=== PATIENT | male | born 1935 | race Caucasian/White ===

== ENCOUNTER 2020-02-24 01:20 | Inpatient (IN) | payer MEDICARE ==
[~2020-02-24] VITALS: Ht 167.6 cm; Wt 70.1 kg
--- NOTE | ~2020-02-24 | OP ---
[address] [address] OPERATIVE REPORT Name: MED FERNANDO Room: [address] IN M.R.#: [id number] Admission: 02/24/20 Attend Phys: Jourdan Melgoza Discharge: Date of : 39 Report #: [id number] THIS REPORT FOR: //name// cc: RAIN Enriquez family physician/PCP RAIN - Zoe family physician/PCP ~ THIS REPORT FOR: //name// CC: [facility] physician/PCP Corey Wang DICTATED BY: Norris Acuña DO DATE OF SERVICE: 02/25/2020 PREOPERATIVE DIAGNOSIS: Acute cholecystitis. POSTOPERATIVE DIAGNOSES: Acute cholecystitis, cholelithiasis and choledocholithiasis. SURGEON: Tacho Ordoñez DO PROTOTYPE MACHINIST: Norris Acuña, PGY4. OPERATION PERFORMED: Laparoscopic cholecystectomy with fluorescent imaging and intraoperative cholangiogram. ANESTHESIA: General. ESTIMATED BLOOD LOSS: 100 mL. SPECIMEN: Gallbladder and contents. COMPLICATIONS: None. INDICATIONS: The patient is an 85-year-old male who presented to the Emergency Department with complaints of right upper quadrant pain after consuming some fast food. He had some nausea and vomiting. On workup, he was found to have a gallstone impacted in the neck of the gallbladder and some possible thickening of his gallbladder. On day of surgery, his bilirubin was slightly elevated and therefore it was decided upon to perform an intraoperative cholangiogram in addition to his cholecystectomy. He was informed of the risks and benefits of laparoscopic cholecystectomy and decided to proceed with surgery. DESCRIPTION OF PROCEDURE: After informed consent was obtained, the patient was brought to the operating room and placed in the supine position. SCDs were on and running. Preoperative antibiotics were delivered. General anesthesia was [address] [address] OPERATIVE REPORT Name: MED FRENANDO Room: [address] IN [facility].#: [id number] Admission: 02/24/20 Attend Phys: Jourdan Melgoza Discharge: Date of : 39 Report #: [id number] administered with an ET tube. The patient tolerated induction well. He was prepped and draped in the usual sterile fashion. A surgical pause was held to confirm proper patient and procedure. An 11 blade was used to make a supraumbilical incision 2 cm in length. Dissection was carried through the subcutaneous tissue using cautery until the fascia was identified and incised using cautery and elevated with 2 Prachi clamps. The peritoneum was bluntly entered using a Lorin clamp. Avyrki-ma-wzigu at the superior and inferior aspect of the fascial incisions were placed using 0 Vicryl. The Lenard port was introduced into the abdomen and the balloon was insufflated. The abdomen was insufflated. Attention was turned towards the right upper quadrant. The transverse colon was somewhat dilated and there was some omentum draped over the gallbladder over the liver. A 5 mm port was placed in the epigastric region. The patient was positioned head up and right side up. A blunt grasper was used to sweep down the omentum. The gallbladder was readily visualized at this point. It was tense and distended and obviously inflamed. Two additional ports were placed in the right upper quadrant under direct visualization. A laparoscopic drainage needle was then used to aspirate the gallbladder about 70 mL of dark bilious fluid were aspirated from the gallbladder. The aspiration needle was withdrawn. The gallbladder was elevated. The fat and peritoneum overlying the hepatocystic triangle was incised using cautery. This plane was developed laterally as well as medially. The inflammation had caused a large rind over this area, which was pulled down revealing the fundus of the gallbladder, which was elevated. Fluorescence imaging was used to inspect the cystic triangle and the cystic duct was readily visualized. [place] dissector was used to circumferentially dissect the cystic duct. Once this was completed, a clip was placed across the cystic duct as close to the gallbladder as possible. Laparoscopic scissors were used to create a hole in the cystic duct to accommodate the cholangiogram catheter. A 14-gauge Angiocath was used to introduce the cholangiogram catheter through the abdominal wall. Once the catheter was placed into the cystic duct, it was secured with an additional clip. The catheter was tested with saline and flush. At this point, the C-arm was brought in and a cholangiogram was performed. There was prompt filling of the cystic and common bile duct as well as the common hepatic ducts. Contrast did flow into the duodenum. However, in the bifurcation from the common hepatic duct into the left and right hepatic ducts, there were some mobile filling defects noted, presumed to be mobile gallstones. These were unable to be retrieved, so no efforts were made towards retrieving these stones. The clip securing the catheter was removed. The catheter was removed from the abdomen as well as the Angiocath. Three additional clips were placed proximal to the cystic duct rent. Laparoscopic scissors were used to completely transect the cystic duct. Maryland dissection was then used to isolate the cystic artery, which was doubly clipped and ligated and cut using laparoscopic scissors. Cautery was then used to dissect the gallbladder free from the liver bed. Once completely free, the gallbladder was placed within an EndoCatch bag and placed aside. There was an area of hemorrhage from the liver bed, which was attempted to be controlled with cautery. This was insufficient, so Surgicel was used in [address] [address] OPERATIVE REPORT Name: FERNANDOMED E Room: [address] IN .R.#: [id number] Admission: 02/24/20 Attend Phys: Jourdan Melgoza Discharge: Date of : 39 Report #: [id number]. Once this was completely cauterized, it was hemostatic. Additional Surgicel was used over the entire liver bed. The right upper quadrant was thoroughly irrigated, suctioned and hemostatic. Clips were intact. The patient was positioned supine and the right upper quadrant was again suctioned. All ports were removed under direct visualization. The gallbladder was removed through the umbilical port. Previous stay sutures were elevated. Two additional of [id number] using 0 Vicryl were placed to close the fascia. Wounds were closed using 4-0 Monocryl. They were cleansed and dressed with Mastisol, Steri-Strips, and Tegaderms. The patient was emerged from anesthesia with no complications. All counts were correct. He was transferred to the PACU in stable condition. By: 1615 [id number] Ordoñez DO /vijay
[2020-02-24] MEDS ORDERED: LOPRESSOR50 MG PO (01:41)
[2020-02-24] MEDS ORDERED: ALLOPURINOL 10100 M3 PO (01:42)
[2020-02-24] MEDS ORDERED: AMLODIPINE BESY10 MG PO (01:42)
[2020-02-24] MEDS ORDERED: SIMVASTATIN80 MG PO (01:43)
[2020-02-24 01:44] VITALS: BP 125/68
[2020-02-24 01:49] LABS: ABSOLUTE BASOPHILS 0.1 thou/uL (0.0-0.2); ABSOLUTE EOSINOPHILS 0.2 thou/uL (0.0-0.7); ABSOLUTE LYMPHOCYTES 2.5 thou/uL (0.8-5.3); ABSOLUTE MONOCYTES 0.5 thou/uL (0.0-1.2); ABSOLUTE NEUTROPHILS 7.9 thou/uL (1.6-8.1); BASOPHILS 0.6 %; EOSINOPHILS 1.4 %; HEMATOCRIT 45.4 % (42.0-52.0); HEMOGLOBIN 15.4 gm/dL (14.0-18.0); LYMPHOCYTES 22.2 %; MCH 31.8 pg (26.0-34.0); MCV 93.6 fL (80.0-100.0); MONOCYTES 4.9 %; MPV 8.8 fl. (7.2-11.1); NUCLEATED RBCS 0 /100WBC; PLATELET COUNT* 198 thou/uL (150-400); POLYS 70.9 %; RBC 4.85 mil/uL (4.50-6.00); RDW-CV 15.3 % (10.5-14.5); WBC 11.1 thou/uL (4.0-11.0)
[2020-02-24 01:59] LABS: CALCIUM 8.8 mg/dL (8.5-10.1); CREATININE 1.5 mg/dL (0.6-1.3); POTASSIUM 3.7 mmol/L (3.5-5.1)
[2020-02-24 02:03] LABS: ALBUMIN 4.2 g/dL (3.4-5.0); TOTAL BILIRUBIN 0.6 mg/dL (<0.1-1.0); TOTAL PROTEIN 7.8 g/dL (6.4-8.2)
[2020-02-24 04:37] VITALS: BP 151/65
[2020-02-24 04:42] VITALS: BP 127/61
[2020-02-24 04:58] LABS: URINE BILIRUBIN NEGATIVE (Negative); URINE BLOOD TRACE (Negative); URINE CLARITY CLEAR; URINE COLOR YELLOW; URINE GLUCOSE-RANDOM NEGATIVE (Negative); URINE KETONES TRACE (Negative); URINE LEUKOCYTES-REFLEX NEGATIVE (Negative); URINE NITRITE-REFLEX NEGATIVE (Negative); URINE PROTEIN NEGATIVE (Negative); URINE UROBILINOGEN 0.2 E.U./dl (0.2-1.0)
--- NOTE | 2020-02-24 06:13 | NUR ---
Pt admitted for abd pain to RUQ. CT shows cholelithiasis as well as calcification to R ureter. Reports pain to RUQ upon arrival to room, rates 4/10. Morphine given (see MAR), reports partial relief from pain. Otherwise no complaints. VSS. NPO; IVF infusing. Will continue to monitor.
[2020-02-24 08:04] VITALS: BP 141/68
--- NOTE | 2020-02-24 13:27 | EKG ---
[place] [address] ELECTROCARDIOGRAM REPORT Name: MED FERNANDO Room: [address] IN .R.#: [id number] Admission: 02/24/20 Attend Phys: Corey Wang Discharge: Date of : 39 Date of Service: 02/24/20 0151 Report #: [id number] THIS REPORT FOR: //name// [facility] ED Test Date: 2020-02-24 Test Time: 01:51:55 Pat Name: MED FERNANDO Department: Room: [facility] Gender: M Machine Shop Supervisor: SUKHWINDER : 1935 Requested By: Saige Cordero Order Number: [id number] MD: Anant Perdomo Measurements Intervals Victor Rate: 55 P: 54 WY: 216 QRS: 55 QRSD: 108 T: 36 QT: 438 QTc: 419 Interpretive Statements Sinus bradycardia Borderline prolonged WY interval No previous ECG available for comparison Electronically Signed On 02-24-2020 13:26:14 CDT by Anant Perdomo [email or web address] <ELECTRONICALLY SIGNED> By: Anant Perdomo MD, [facility] 02/24/20 1326 0151 0151 Anant Perdomo MD, FAC /EPI
--- NOTE | 2020-02-24 16:39 | NUR ---
ASSUMED CARE OF PT AROUND 0730 THIS AM. REFER TO ASSESSMENT. PT REPORTS TOLERABLE PAIN. SCHEDULED TYLENOL ADMINISTERED X1 THIS SHIFT. TOLERATING SIPS OF LIQUIDS AT THIS TIME. ANTICIPATE REMOVAL OF GALL BLADDER PER SURGERY TOMORROW. IVF INFUSING WITHOUT DIFFICULTY. PT AND FAMILY AWARE OF PLAN OF CARE. PT TRANSFERRED TO TELE UNIT ROOM 211. REPORT GIVEN TO RECEIVING RN. NO OTHER CONCERNS AT THIS TIME. CLWR. WCTM.
--- NOTE | 2020-02-24 18:52 | NUR ---
ASSUMED PT CARE AT APPROXIMATELY 1615. PT DID C/O N/V, PRN ZOFRAN GIVEN WITH GOOD RESULTS. PT SLEEPING AT THIS TIME. CLWR.
[2020-02-24 20:00] VITALS: BP 182/112
--- NOTE | 2020-02-24 20:00 | NUR ---
RECEIVED REPORT AND ASSUMED CARE OF PT, ASSESSMENT COMPLETED. PT IMPULSIVE, ASSISTED TO BR, GAIT VERY UNSTEADY AND TREMORS. TEMP ELEVATED 101.5, TYLENOL GIVEN. OTHER PATINO PT REMAINS NPO. WILL CONT TO MONITOR AND ASSIST NEEDED.
[2020-02-24 21:15] VITALS: BP 116/52
[2020-02-25 00:25] VITALS: BP 117/65
[2020-02-25 04:54] LABS: MPV 8.6 fl. (7.2-11.1); NUCLEATED RBCS 0 /100WBC; WBC 17.1 thou/uL (4.0-11.0)
[2020-02-25 04:56] LABS: HEMOGLOBIN 13.2 gm/dL (14.0-18.0); MCH 31.8 pg (26.0-34.0); MCHC 33.9 g/dL (28.0-37.0); MCV 93.8 fL (80.0-100.0); PLATELET COUNT* 112 thou/uL (150-400); RBC 4.16 mil/uL (4.50-6.00); RDW-CV 15.3 % (10.5-14.5)
[2020-02-25 05:17] LABS: CALCIUM 7.9 mg/dL (8.5-10.1); CREATININE 1.4 mg/dL (0.6-1.3); MAGNESIUM 1.7 mg/dL (1.8-2.4); PHOSPHORUS* 3.2 mg/dL (2.5-4.9); POTASSIUM 4.4 mmol/L (3.5-5.1); TOTAL BILIRUBIN 1.3 mg/dL (<0.1-1.0); TOTAL PROTEIN 5.8 g/dL (6.4-8.2)
[2020-02-25 05:23] LABS: CHOLESTEROL 77 mg/dL (<200); HDL CHOLESTEROL 53 mg/dL (>40); LDL CHOLESTEROL 15 mg/dL (<100); TC:HDL 1.5 Ratio (Not establshd); TRIGLYCERIDE 48 mg/dL (<150); VLDL 10 mg/dL (<40)
[2020-02-25 05:29] LABS: SERUM ASSESSMENT CLEAR
[2020-02-25 06:12] LABS: ABSOLUTE LYMPHOCYTES 0.3 thou/uL (0.8-5.3); ABSOLUTE MONOCYTES 0.5 thou/uL (0.0-1.2); ABSOLUTE NEUTROPHILS 16.2 thou/uL (1.6-8.1)
[2020-02-25 06:13] LABS: PLATELET ESTIMATE ADEQUATE
--- NOTE | 2020-02-25 06:38 | NUR ---
SLEPT WELL TONIGHT. ASSISTED TO BR WITH UNSTEADY GAIT. INITALLY VOIDING FREQ BUT THEN SLOWED DOWN, NO TROUBLE EMPTYING. TEMP IMPROVED THROUGHOUT SHIFT. REMAINS NPO. HS GOALS OF REST AND SAFETY ACHIEVED. HOURLY ROUNDING OBSERVED.
[2020-02-25 07:50] VITALS: BP 115/71
--- NOTE | 2020-02-25 14:44 | NUR ---
SW attempted to call pt room to discuss initial assessment and dc planning but pt did not answer. Pt lives at home with and might dc home tomorrow; no needs anticipated.
--- NOTE | 2020-02-25 19:00 | NUR ---
ASSUMED CARE OF PATIENT AT APPROX 0730. ALERT AND OREINTED X4. ASSESSMENT COMPLETED AND CHARTED. VSS ON ROOM AIR. PATIENT TO PACU AT APPROX 1300 AND RETURNED TO FLOOR AT 1700. PATIENT REMAINS ALERT AND OREINTED. VSS ON 3 LITERS 02. LAP SITES X4 OBSERVED, DRESSING CLEAN, DRY AND INTACT. NO COMPLAINTS OF PAIN OR NAUSEA. FALL PRECAUTIONS IN PLACE. CALL LIGHT WITHIN REACH. HOURLY ROUNDS COMPLETED. WILL CONTINUE WITH PLAN OF CARE.
[2020-02-25 20:00] VITALS: BP 117/61
[2020-02-26 04:32] LABS: HEMATOCRIT 35.8 % (42.0-52.0); HEMOGLOBIN 12.1 gm/dL (14.0-18.0); MCH 31.5 pg (26.0-34.0); MCHC 33.7 g/dL (28.0-37.0); MCV 93.2 fL (80.0-100.0); MPV 9.1 fl. (7.2-11.1); RBC 3.84 mil/uL (4.50-6.00); RDW-CV 15.5 % (10.5-14.5); WBC 12.2 thou/uL (4.0-11.0)
[2020-02-26 04:47] LABS: ALBUMIN 2.5 g/dL (3.4-5.0); CALCIUM 7.8 mg/dL (8.5-10.1); CREATININE 1.2 mg/dL (0.6-1.3); MAGNESIUM 1.8 mg/dL (1.8-2.4); PHOSPHORUS* 2.8 mg/dL (2.5-4.9); POTASSIUM 4.1 mmol/L (3.5-5.1); TOTAL BILIRUBIN 0.6 mg/dL (<0.1-1.0); TOTAL PROTEIN 5.6 g/dL (6.4-8.2)
--- NOTE | 2020-02-26 07:55 | NUR ---
ASSUMED PATIENT CARE AT 1900. ASSESSMENT COMPLETED CHARTED. PATIENT IS MED-SURG. HOURLY ROUNDING IN PLACE FOR PATIENT SAFETY. CLWR. ADDOMINAL INCISION SITES ARE CLEAN, DRY, AND INTACT.
[2020-02-26 08:10] VITALS: BP 143/59
[2020-02-26 12:00] VITALS: BP 108/66
[2020-02-26 13:14] VITALS: BP 108/66
[2020-02-26] MEDS ORDERED: OXYCODONE HCL 55 MG PO (15:38)
[2020-02-26] MEDS ORDERED: IBU600 MG PO (15:43)
[2020-02-26] MEDS ORDERED: PAIN RELIEF EX500 MG PO (15:44)
--- NOTE | 2020-02-26 16:10 | NUR ---
PATIENT UP AND AMBULATING WITH NURSE, NO DIFFICULTY NOTED. PATIENT DOWN FOR ERCP THIS AFTERNOON BUT CANCELLED PER DR. BEVERLY. WILL SEE PT IN A MONTH AND HAVE FOLLOW UP LFT'S NEXT WEEK, ORDER SHEET GIVEN. PER DR. BEVERLY PATIENT OK TO DC HOME. DR. BEVERLY SPOKE WITH SURGERY WHILE PATIENT IN PACU. LAP SITES C/D/I. PATIENT VOIDING WITHOUT DIFFICULTY. PATIENT TOLERATED REG DIET. PER DR. ANDRES OK TO DC HOME. IV DC'D. PATIENT TAKEN OUT VIA WHEELCHAIR WITH ALL BELONGINGS.
--- NOTE | 2020-02-28 15:08 | PATH ---
[address] [address] PATHOLOGY RPT PROCEDURE Name: BENNIE FERNANDO Room: [address] IN M.R.#: [id number] Admission: 02/24/20 Date of : 39 Discharge: 02/26/20 Report #: [id number] Path Case #: [id number] [facility] Accession Number: [id number] . 01 Material submitted: . gallbladder - GALLBLADDER . 01 Clinical history: . Cholelithiasis, acute cholecystitis, acute choledocholithiasis. . 02 Diagnosis: Gallbladder: - Chronic and acute cholecystitis and serositis with cholelithiasis. (RON:pit 02/28/2020) QTP 02/28/2020 1043 Local . 02 Electronically signed: . James Coulter MD, Pathologist NPI- [id number] . 01 Gross description: . Received in formalin labeled "Bennie Fernando, gallbladder" is an intact cholecystectomy specimen measuring 9.6 x 4.2 x 3.0 cm. The serosa is acuna-white with a full thickness defect on the body measuring 1.0 cm. Focal areas of acuna-white purulent exudate are present. The specimen is opened to reveal acuna-brown focally hemorrhagic mucosa without polyps or masses. The average wall thickness is 0.3-0.6 cm. One brown-black ovoid calculus is present within the gallbladder measuring 2.1 cm in greatest dimension. Roadway Designer sections of the fundus and body and the cystic duct margin are submitted in A1. ([facility] [place] 02/27/2020) [facility] 02/27/2020 1136 Local . 02 Pathologist provided ICD-10: K80.12 . 02 CPT . 844514 Specimen Comment: A courtesy copy of this report has been sent to [phone] Specimen Comment: [id number] Specimen Comment: Report sent to Specimen Comment: Report sent to / DR KEY Performed at: 01 [facility] [address] [place] [address] [id number] MD Jose Brown MD Phone: [phone] Performed at: 02 [place] [address] PATHOLOGY RPT PROCEDURE Name: BENNIE FERNANDO Room: [address] IN M.R.#: [id number] Admission: 02/24/20 Date of : 39 Discharge: 02/26/20 Report #: [id number] Path Case #: [id number] [address], Reji Quigley, [place] [id number] MD James Coulter MD Phone: [phone]
--- NOTE | 2020-03-02 15:14 | CON ---
[address] [address] CONSULTATION Name: MED FERNANDO Room: [address] IN .R.#: [id number] Admission: 02/24/20 Attend Phys: Jourdan Melgoza Discharge: 02/26/20 Date of : 39 Report #: [id number] THIS REPORT FOR: //name// cc: RAIN - No family physician/PCP RAIN - No family physician/PCP ~ THIS REPORT FOR: //name// CC: [facility] physician/PCP Corey Wang DATE OF SERVICE: 02/26/2020 REASON FOR CONSULT: Possible filling defect in the common bile duct per cholangiogram. HISTORY OF PRESENT ILLNESS: This is an 85-year-old male with history of gallbladder disease, who underwent laparoscopic cholecystectomy yesterday. I received a call from Dr. Ordoñez with couple filling defects in the common bile duct. The patient currently denies any symptoms as he denies abdominal pain, nausea or vomiting. His liver function tests are all completely normal. The cholangiogram was read as air bubbles x 2 without any evidence of choledocholithiasis or ductal dilatation. PAST MEDICAL HISTORY: Significant for history of nephrolithiasis, gallbladder disease, status post cholecystectomy, hypertension, dyslipidemia, prostate cancer with history of radiation. ALLERGIES: No known drug allergy. MEDICATIONS: Please refer to MAR. SOCIAL HISTORY: The patient lives at home. Denies tobacco or alcohol use. FAMILY HISTORY: Significant for heart disease. PHYSICAL EXAMINATION: VITAL SIGNS: Reveals blood pressure of 108/66, respirations 16, pulse 66, temperature 97.5. LUNGS: Clear. CARDIOVASCULAR: Regular. ABDOMEN: Soft, nontender, nondistended. Bowel sounds are positive. NEUROLOGIC: The patient is alert and oriented x 3. There is no focal neurologic deficit. LABORATORY DATA: Revealed sodium of 140, potassium 4.1, BUN is 20, creatinine 1.2, glucose 119, AST 73, total bilirubin 0.6, ALT 63, [place] [address] CONSULTATION Name: MED FERNANDO Room: [address]#: [id number] Admission: 02/24/20 Attend Phys: Jourdan Melgoza Discharge: 02/26/20 Date of : 39 Report #: [id number] 71, albumin is 2.5. WBC is 12.2 down from 17.1 and hemoglobin of 12.1 with platelet count of 87. IMAGING: Intraoperative cholangiogram is unremarkable. There is no evidence of choledocholithiasis. The two small air bubbles identified within the proximal common bile duct. ASSESSMENT AND PLAN: The patient with history of gallbladder disease, status post laparoscopic cholecystectomy yesterday who currently has no pain. His LFTs also are normal except mild elevation of his AST. Cholangiogram calling the filling defects as air bubbles in the proximal CBD. I discussed the case with Dr. Tacho Ordoñez and we plan on discharging the patient and repeating his LFTs in a week. If the patient develops pain or has elevated LFTs, we will consider MRCP and if it shows ductal stone, we will proceed with ERCP as outpatient. I will follow up with the patient in a month in the office, but we will review his LFTs in a week. The patient is agreeable with plan. <ELECTRONICALLY SIGNED> By: Noelle Lu MD 03/02/20 1514 1252 [id number] Lu MD /nt
== END 2020-02-26 16:12 | disposition home or self-care (01) | DRG 417 ==
LOC: M.ERS 01:20 → M.TBA-ER 03:33 → M.ICU 03:33 → M.2W 16:28
PROVIDERS: Emergency Medicine; Family Medicine; Surgery; ADMIT Internal Medicine
PROC: 0FT44ZZ Resection of Gallbladder, Percutaneous Endoscopic Approach (ICD-10-PCS; principal; 2020-02-25)
PROC: BF141ZZ Fluoroscopy of Gallbladder, Bile Ducts and Pancreatic Ducts using Low Osmolar Contrast (ICD-10-PCS; principal; 2020-02-25)
DX: K80.62 Calculus of gallbladder and bile duct with acute cholecystitis without obstruction (principal); R65.11 Systemic inflammatory response syndrome (SIRS) of non-infectious origin with acute organ dysfunction; N17.9 Acute kidney failure, unspecified; N20.1 Calculus of ureter; E78.5 Hyperlipidemia, unspecified; E86.9 Volume depletion, unspecified; I10 Essential (primary) hypertension; M10.9 Gout, unspecified; Z85.46 Personal history of malignant neoplasm of prostate; Z92.3 Personal history of irradiation; Z79.899 Other long term (current) drug therapy; Z82.49 Family history of ischemic heart disease and other diseases of the circulatory system; Z83.3 Family history of diabetes mellitus